=== PATIENT | male | born 1960 | race African-American/Black ===

== ENCOUNTER 2019-02-04 11:18 | Emergency (ER) | payer MEDICAID ==
[~2019-02-04] VITALS: Ht 170.2 cm; Wt 79.0 kg
[2019-02-04 17:15] LABS: BASOPHILS % 0.6 % (0.0-2.0); EOSINOPHILS % 1.6 % (0.0-5.0); HEMATOCRIT. 37.9 % (42.0-52.0); HEMOGLOBIN. 12.5 g/dL (14.0-18.0); LYMPHOCYTES % 43.6 % (20.0-50.0); MEAN CORPUSCULAR HEMOGLOBIN 28.4 pg (28.0-32.0); MEAN CORPUSCULAR VOLUME 86.4 fL (80.0-94.0); MEAN PLATELET VOLUME 7.3 fl (7.4-10.4); MONOCYTES % 7.3 % (2.0-8.0); NEUTROPHILS % 46.9 % (40.0-76.0); PLATELET 229 x1000/uL (130-400); RED BLOOD CELL COUNT 4.39 mill/uL (4.7-6.1); RED CELL DISTRIBUTION WIDTH 14.2 % (11.6-14.6)
[2019-02-04 17:20] LABS: CHLORIDE 107 mEq/L (98-107); PROTHROMBIN TIME 10.4 sec (9.1-11.1)
[2019-02-04 19:06] VITALS: BP 204/108
[2019-02-04] MEDS ORDERED: AMLODIPINE 5MG TABLET PO ONE (19:30)
== END 2019-02-04 19:32 | disposition home or self-care (01) ==
LOC: ER 11:18
DX: G45.9 Transient cerebral ischemic attack, unspecified (principal); I16.0 Hypertensive urgency; K40.90 Unilateral inguinal hernia, without obstruction or gangrene, not specified as recurrent; M89.9 Disorder of bone, unspecified
CPT/HCPCS: 36415; 74176; 93005; 99284